=== PATIENT | male | born 1960 | race Two or more races ===

== ENCOUNTER → 2022-08-02 11:13 | Outpatient (BNVA) | payer OTHER, SELFPAY | PROVIDERS: PCP Internal Medicine; Visit Provider Anesthesiology | DX: M79.18 Myalgia, other site (principal) | CPT/HCPCS: 99202 ==

== ENCOUNTER 2023-10-08 12:05 | Outpatient (REF) | payer MEDICARE, MEDICAID, SELFPAY ==
[2023-10-08 13:22] LABS: Alanine Aminotransferase 14 U/L (0-40); Albumin Level 4.1 g/dL (3.5-5.0); Alkaline Phosphatase 96 U/L (39-117); Aspartate Amino Transferase 21 U/L (5-37); Bilirubin Direct < 0.2 mg/dL (0.0-0.5); Bilirubin Total 0.2 mg/dL (0.0-1.0); Total Protein 7.7 g/dL (6.5-8.0)
[2023-10-08 13:53] LABS: Vitamin B12 511 pg/mL (200-900)
== END 2023-10-08 12:06 | disposition home or self-care (01) ==
LOC: HO.LAB 12:05
PROVIDERS: Visit Provider Psychiatry & Neurology Neurology
DX: G30.9 Alzheimer's disease, unspecified (principal); F10.10 Alcohol abuse, uncomplicated
CPT/HCPCS: 36415; 80076; 82607; 82746

== ENCOUNTER 2025-07-06 08:46 | Outpatient (AMB) | payer MEDICARE, MEDICAID, SELFPAY ==
--- NOTE | 2025-07-06 08:47 | MHC.OFFVIS ---
Intake Visit Reasons: 6 months Accompanied by: Nephew or Niece Allergies acetaminophen (From Percocet) Allergy (Verified 07/06/25 08:48) Unknown oxycodone (From Percocet) Allergy (Verified 07/06/25 08:48) Unknown Medication List - Last Reconciled 07/03/25 by Naye Sanchez CNP acetaminophen ER mg PO albuterol sulfate 90 mcg/actuation (ProAir HFA) inhalation amlodipine 10 mg PO DAILY aspirin 81 mg PO DAILY atorvastatin 80 mg PO DAILY fenofibrate 54 mg PO DAILY fluoxetine mg PO QAM folic acid 1 mg PO DAILY hydrochlorothiazide 12.5 mg PO DAILY lisinopril 20 mg PO DAILY quetiapine 25 mg PO BEDTIME thiamine HCl (vitamin B1) 100 mg PO DAILY trazodone 25 mg PO BEDTIME HPI Comments Details: 64-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 He was living alone in apartment with his one dog. He was going for some walks with his dogs. His niece was helping to manage his medications. She was doing everything for him, including grocery shopping and paying his rent. He misplaces things and was forgetful. He was drinking 0-3 beers/week. Mood was okay. Sleep was okay. [facility] Medical History (Updated 07/06/25 @ 08:52 by Naye Sanchez CNP) Alcoholic dementia Alzheimer disease Abusive behavior Alcohol abuse Multifactorial dementia Internal hemorrhoids BPH (benign prostatic hyperplasia) Hypertension Hyperlipidemia Surgical History (Updated 08/02/22 @ 11:28 by ESCOBAR Sommer) History of kidney surgery History of knee surgery Review of Systems Const Denies chills, Denies daytime sleepiness, Denies difficulty sleeping, Denies fatigue, Denies fever(s), Denies frequent falls, Denies headache(s), Denies increased appetite, Denies poor appetite, Denies snoring, Denies weakness, Denies weight gain and Denies weight loss Eyes Denies loss of vision ENT Denies vertigo, Denies dizziness and Denies headache(s) Card Denies chest pain at rest, Denies chest pain with activity, Denies syncope, Denies leg edema and Denies palpitations Resp Denies snoring GI Denies constipation, Denies heartburn, Denies diarrhea and Denies nausea Denies urinary frequency, Denies urinary incontinence and Denies urinary urgency Musc Denies abnormal gait, Denies numbness and Denies tingling Skin/Breast Denies dry skin and Denies rash Neuro Denies abnormal gait, Denies vertigo, Denies dizziness, Denies syncope, Denies frequent falls, Denies headache(s), Denies lack of coordination, Denies loss of vision, Reports memory loss, Denies numbness, Denies restless legs, Denies seizure-like activity, Denies tingling, Denies paresthesias, Denies tremor(s) and Denies weakness Psych Denies anxiety, Denies depression, Denies auditory hallucinations, Reports memory loss, Denies visual hallucinations and Denies suicidal ideation Endo Denies fatigue and Denies palpitations Physical Exam Const Other: General Appearance:? normal, in no acute distress. Skin:? no rashes, no significant birthmarks. Heart:? S1, S2 normal, no murmurs. Lungs:? clear anteriorly and posteriorly. Extremities:? no edema. Psych:? alert, cooperative with exam. Neuro Other: Mental Status:?Alert and awake with normal sp speech and anxious affect. He is unable to tell me what city he lives in or his age. He is able to tell me his birthday Cranial Nerves:?Pupils are equal, round and reactive to light. External occular muscles are intact. Visual garcia are full. Face is symmetrical. Facial sensations are normal. Tongue is midline. Palate elevates symmetrically. Shoulder shrugging is normal. Hearing to bedside conversation is normal. Motor Examination:?DTRs trace to absent. Sensory Exam:?....? Coordination:?No ataxia,?no titubation.? Gait Exam: Within normal limits. Cerebellar Signs:?Nxxboc-hc-lwyz is okay. Extrapyramidal System:?No tremor, rigidity with normal facial expressions.? Pronator Drift:?Not present.? Involuntary Movements:?No tremors seen.? Speech:?Normal.? Results Reviewed Results Reviewed: MRI Brain w/o contrast at [facility] 09/2023: Mild MVD and atrophy (reported) Assessment & Plan Assessment & Plan (1) Alzheimer disease: Code(s): G30.9 - Alzheimer's disease, unspecified; F02.80 - Dementia in other diseases classified elsewhere, unspecified severity, without behavioral disturbance, psychotic disturbance, mood disturbance, and anxiety Category: Medical Plan: Continue quetiapine 25mg 1 tablet at bedtime Continue thiamine 100mg 1 tablet daily Continue folic acid 1mg 1 tablet daily (2) Multifactorial dementia: Code(s): F03.90 - Unspecified dementia, unspecified severity, without behavioral disturbance, psychotic disturbance, mood disturbance, and anxiety Category: Medical (3) Alcohol use disorder: Code(s): F10.90 - Alcohol use, unspecified, uncomplicated Category: Medical (4) Behavior disturbance: Code(s): F91.9 - Conduct disorder, unspecified Category: Medical Plan . Medications: New quetiapine 25 mg PO BEDTIME 90 tabs 1RF 90 days folic acid 1 mg PO DAILY 90 tabs 1RF 90 days thiamine HCl (vitamin B1) 100 mg PO DAILY 90 tabs 1RF 90 days Coding Level of Care Code Est Pt Level 4 (28712) Diagnoses Alzheimer disease G30.9; F02.80 Multifactorial dementia F03.90 Alcohol use disorder F10.90 Behavior disturbance F91.9
--- OUTSIDE RECORDS SUMMARY | 2025-07-06 09:09 | XMS_ITS ---
Author Name [facility] Organization Unknown Care Team Organization Name Specialty Phone Email Start Date End Da te [facility] Primary [facility] 09/26/2022 07/07/20 24
--- OUTSIDE RECORDS SUMMARY | 2025-07-06 09:09 | XMS_ITS | Clinical Summary ---
Author Organization [facility] Address [address] [place] [address] Phone Care Team Providers Care Strategic Accounts Manager Name Role Phone Lisbet Yu Primary Care Provider + Allergies Active Allergy Reactions Criticality Noted Date Comments Oxycodone-Acetaminophen 09/30/2013 Medications acetaminophen (TYLENOL 8 HOUR) 650 mg 8 hr tablet TAKE 1 TABLET BY MOUTH TWICE A DAY FOR 30 DAYS 07/14/20 22 Active aspirin 81 mg EC tablet TAKE 1 TABLET BY MOUTH EVERY DAY 07/25/20 23 Active atorvastatin (LIPITOR) 80 mg tablet TAKE 1 TABLET BY MOUTH EVERY DAY 06/19/20 24 Active QUEtiapine (SEROquel) 25 mg tablet 08/08/20 24 Active amLODIPine (NORVASC) 10 mg tabletIndication s:Primary hypertension Take 1 tablet (10 mg total) by mouth 1 (one) time each day. 90 tablet 1 12/29/19 25 Active magnesium oxide 250 mg magnesium tabletIndication s:Hypomagnesemia TAKE 1 TABLET BY MOUTH AT BEDTIME. 90 tablet 1 01/27/20 25 Active lisinopriL (PRINIVIL,ZESTRI L) 20 mg tabletIndication s:Primary hypertension TAKE 1 TABLET (20 MG TOTAL) BY MOUTH ONE TIME EACH DAY 90 tablet 1 06/15/20 25 Active hydroCHLOROthiaz sary (MICROZIDE) 12.5 mg capsuleIndicatio ns:Primary hypertension TAKE 1 CAPSULE BY MOUTH 1 TIME EACH DAY. 90 capsule 1 06/29/20 25 Active lisinopriL (PRINIVIL,ZESTRI L) 20 mg tabletIndication s:Primary hypertension Take 1 tablet (20 mg total) by mouth 1 (one) time each day. 90 tablet 1 12/29/19 25 025 Discontinued hydroCHLOROthiaz sary (MICROZIDE) 12.5 mg capsuleIndicatio ns:Primary hypertension Take 1 capsule (12.5 mg total) by mouth 1 (one) time each day. 90 capsule 1 12/29/19 25 025 Discontinued Active Problems Problem Noted Date Diagnosed Date Hyperlipidemia 06/05/2018 Hypertension 01/18/2018 BPH (benign prostatic hyperplasia) 05/25/2017 Internal hemorrhoids 03/23/2015 Prediabetes Encounters Date Type Department Care Team Description 05/11/2025 1:00 PM EDT - 05/11/2025 11:59 PM EDT Hospital Encounter [facility] CT Scan [address] [place] [id number] Discharge Disposition: Home or Self Care 05/11/2025 9:30 AM EDT Office Visit Lung Screening Program - [place] [address] [facility] [address] [place] [address] [place] NP Encounter for screening for malignant neoplasm of lung in current smoker with 30 pack year history or greater (Primary Dx); Tobacco abuse disorder 04/29/2025 Telephone Internal Medicine - [place] [address] [facility] [address] [place] [address] Lisbet Yu PA Melonie: Letter from Last 3 Months Immunizations Name Administration Dates Next Due Influenza Quadravalent, MDCK , 0.5ml, preservative free (Flucelvax) 6mo and older 10/23/2018 Influenza trivalent, 0.5mL, preservative free (Fluarix; FluLaval; Fluzone) ages 6mo and older (Afluria) 3 years and older 09/30/2019 Surgical History Surgery Date Site/Laterality Comments KNEE SURGERY PROCEDURE: HISTORICAL KNEE SURGERY OTHER SURGICAL HISTORY PROCEDURE: HISTORY OTHER; COMMENT: kidney surgery Medical History Medical History Date Comments BPH (benign prostatic hyperplasia) 05/25/2017 DX:BPH (benign prostatic hyperplasia) Hyperlipidemia 06/05/2018 DX:Hyperlipidemi a Hypertension 01/18/2018 DX:Hypertension Internal hemorrhoids 03/23/2015 DX:Internal hemorrhoids Prediabetes Social History Tobacco Use Types Packs/Day Years Used Date Smoking Tobacco: Every Day Cigarettes 0.5 49.6 Started: 1975 Smokeless Tobacco: Never Alcohol Use Standard Drinks/Week Comments Yes 0 (1 standard drink = 0.6 oz pur e alcohol) Sex and Gender Information Value Date Recorded Sex Assigned at Not on file Legal Sex Male 1:57 PM EST Gender Identity Not on file Sexual Orientation Not on file Obstetrics History Last Filed Vital Signs Vital Sign Reading Time Taken Comments Blood Pressure 140/86 03/30/2025 9:43 AM EDT Pulse 67 03/30/2025 9:22 AM EDT Temperature 37 C (98.6 F) 05/11/2025 9:25 AM EDT Respiratory Rate - - Oxygen Saturation 98% 03/30/2025 9:22 AM EDT Inhaled Oxygen Concentration - - Weight 57.6 kg (127 lb) 03/30/2025 9:22 AM EDT Height 160 cm (5' 3 ) 03/30/2025 9:22 AM EDT Body Mass Index 22.5 03/30/2025 9:22 AM EDT Plan of Treatment Upcoming Encounters Date Type Department Care Team (Late st Contact Info) Description 09/28/2025 10:00 AM EST Office Visit Internal Medicine - [place] [address] [facility] [address] [place] [phone] Lisbet Yu, PA [address] [place] [address] Health Maintenance Due Date Last Done Comments Zoster Vaccines (1 of 2) 2008 Pneumococcal Vaccine: 50+ Years (2 of 2 - PCV) 09/20/2013 09/20/2012 Abdominal Aortic Aneurysm (AAA) Screen 10/28/2022 Colorectal Cancer Screening: Colonoscopy 10/28/2022 Hepatitis C Screening 10/28/2022 Medicare Annual Wellness Visit 10/28/2022 Social Influencers of Health Screening 10/28/2022 DTaP,Tdap,and Td Vaccines (2 - Td or Tdap) 04/04/2023 04/04/2013 Falls Risk Assessment 2023 COVID-19 Vaccine ( season) 2024 04/04/2021, 03/14/2021 Depression Screening 11/19/2024 Influenza Vaccine (#1) 2025 , 09/30/2019, 07/11/2019, Additional history exists Hypertension/CHF/CAD Annual BMP Blood Test 01/23/2026 01/23/2025, 08/31/2023 Lung Cancer Screening (Low Dose CT) 05/11/2026 05/11/2025, 01/23/2022, 01/22/2021 Cholesterol Screening (Lipid Panel) 01/23/2030 01/23/2025, 08/31/2023 RSV Immunization Adult Patients (1 - 1-dose 75+ series) 2033 Hepatitis A Vaccines Aged Out 05/31/2012 No long er eligible based on patient's age to complete this topic Hepatitis B Vaccines Completed 04/04/2013, 09/20/2012, 05/31/2012 HIB Vaccines Aged Out No longer eligi ble based on patient's age to complete this topic HPV Vaccines Aged Out No longer eligi ble based on patient's age to complete this topic IPV Vaccines Aged Out No longer eligi ble based on patient's age to complete this topic MMR Vaccines Aged Out No longer eligi ble based on patient's age to complete this topic Meningococcal ACWY Vaccine Aged Out N o longer eligible based on patient's age to complete this topic Meningococcal B Vaccine Aged Out No l onger eligible based on patient's age to complete this topic RSV Immunization Patients Under 20 months Aged Out No longer eligible based on patient's age to complete this topic Varicella Vaccines Aged Out No longer eligible based on patient's age to complete this topic Procedures Procedure Name Priority Date/Time Associated Diagnosis Comments CT LUNG SCREENING Routine 05/11/2025 1:5 5 PM EDT Encounter for screening for malignant neoplasm of respiratory organs Nicotine dependence, cigarettes, uncomplicated COMPREHENSIVE METABOLIC PANEL Routine 01/23/2025 8:51 AM EST Primary hypertension Pure hypercholesterolemia LIPID PANEL WITH REFLEX TO DIRECT LDL Routine 01/23/2025 8:51 AM EST Pure hypercholesterolemia from Last 3 Months or Most Recently Relevant to Health Maintenance Results * CT Lung Screening (05/11/2025 1:55 PM EDT) Anatomical Region Laterality Modality Chest Computed Tomogra phy 05/12/2025 2:16 PM EDT Impressions 05/12/2025 3:34 PM EDT Lung RADS 2. Guidelines recommend repeat low-dose screening CT in 12 months. -------- FINAL REPORT -------- Dictated By: Jono Amaral Dictated Date: 05/12/2025 14:16 ET Assigned Physician: Jono Amaral Reviewed and Electronically Signed By: Jono Amaral Signed Date: 05/12/2025 15:34 ET Workstation ID: [id number] Transcribed By: Self Edit Transcribed Date: 05/12/2025 14:16 ET Narrative 05/12/2025 3:34 PM EDT PROCEDURE: Low-dose CT of the chest without intravenous contrast. TECHNIQUE: Low-dose CT of the chest without intravenous contrast administration. Coronal and sagittal reformats and MIP reconstructions were created. Dose length product: 160 mGy-cm. HISTORY: Lung cancer screening, >=20 pk yr current smoker (Age 50-80y) COMPARISON: 01/22/2022. FINDINGS: Lungs/pleura: The central airways are clear and normal in caliber. Mild focal bronchial wall thickening and small focal centrilobular groundglass nodules, suggestive of RB-ILD. Stable 3 mm nodule in the lateral superior segment of the left lower lobe, series 3 image 110. Right larger than left Bochdalek hernias with mild associated compressive atelectasis. No pleural effusion or pneumothorax. Mediastinum/romina: No mediastinal mass or lymphadenopathy. Calcified right hilar nodes. No appreciable hilar lymphadenopathy on limited noncontrast evaluation. Vasculature: Normal caliber pulmonary arteries. Moderate atherosclerotic calcifications of the aorta and great vessels. Cardiac: Normal heart size. Mild coronary artery calcification. Chest wall: No axillary or supraclavicular lymphadenopathy. Limited abdomen: A low-attenuation lesion in the lateral left kidney, probably a cyst. Punctate calcified granulomas in the liver and spleen. Bones: Degenerative changes of the spine. Right glenohumeral arthroplasty. Procedure Note Jono Amaral MD - 05/12/2025 PROCEDURE: Low-dose CT of the chest without intravenous contrast. TECHNIQUE: Low-dose CT of the chest without intravenous contrastadministration. Coronal and sagittal reformats and MIP reconstructionswere created. Dose length product: 160 mGy-cm. HISTORY: Lung cancer screening, >=20 pk yr current smoker (Age 50-80y) COMPARISON: 01/22/2022. FINDINGS: Lungs/pleura: The central airways are clear and normal in caliber. Mildfocal bronchial wall thickening and small focal centrilobular groundglassnodules, suggestive of RB-ILD. Stable 3 mm nodule in the lateral superiorsegment of the left lower lobe, series 3 image 110. Right larger thanleft Bochdalek hernias with mild associated compressive atelectasis. Nopleural effusion or pneumothorax. Mediastinum/romina: No mediastinal mass or lymphadenopathy. Calcified righthilar nodes. No appreciable hilar lymphadenopathy on limited noncontrastevaluation. Vasculature: Normal caliber pulmonary arteries. Moderate atheroscleroticcalcifications of the aorta and great vessels. Cardiac: Normal heart size. Mild coronary artery calcification. Chest wall: No axillary or supraclavicular lymphadenopathy. Limited abdomen: A low-attenuation lesion in the lateral left kidney,probably a cyst. Punctate calcified granulomas in the liver and spleen. Bones: Degenerative changes of the spine. Right glenohumeralarthroplasty. IMPRESSION: Lung RADS 2. Guidelines recommend repeat low-dose screening CT in 12months. -------- FINAL REPORT -------- Dictated By: Jono Amaral Dictated Date: 05/12/2025 14:16 ET Assigned Physician: Jono Amaral Reviewed and Electronically Signed By: Jono Amaral Signed Date: 05/12/2025 15:34 ET Workstation ID: [id number] Transcribed By: Self Edit Transcribed Date: 05/12/2025 14:16 ET us Vani Grajeda MD [facility] CT PROCEDURES Final Result * (ABNORMAL) Lipid panel with reflex to direct LDL (01/23/2025 8:51 AM EST) Cholesterol 178 0 - 200 mg/dL LAB CHEMISTRY METHOD 01/23/2025 11:15 AM [facility] Triglycerides 223(H) 0 - 150 mg/dL LAB CHEMISTRY METHOD 01/23/2025 11:15 AM [facility] HDL 48 >=40 mg/dL LAB CHEMISTRY METHOD 01/23/2025 11:15 AM [facility] LDL Calculated 85 0 - 100 mg/dL LAB CHEMISTRY METHOD 01/23/2025 11:15 AM [facility] VLDL Cholesterol Meek 44.6 mg/dL LAB CHEMISTRY METHOD 01/23/2025 11:15 AM [facility] Non HDL Chol. (LDL+VLDL) 130 <145 mg/dL LAB CHEMISTRY METHOD 01/23/2025 11:15 AM [facility] Chol/HDL Ratio 3.7 0.0 - 4.4 LAB CHEMISTRY METHOD 01/23/2025 11:15 AM [facility] Blood Venous blood specimen / Unknown Venipuncture / Unknown 01/23/2025 8:51 AM EST 01/23/2025 8:51 AM EST us Lisbet BOO LAB BLOOD ORDERABLES Fin al Result [facility] [address] [place] [address], * Comprehensive metabolic panel (01/23/2025 8:51 AM EST) Sodium 138 133 - 145 mmol/L LAB CHEMISTRY METHOD 01/23/2025 11:15 AM [facility] Potassium 4.1 3.5 - 5.5 mmol/L LAB CHEMISTRY METHOD 01/23/2025 11:15 AM [facility] Chloride 104 96 - 110 mmol/L LAB CHEMISTRY METHOD 01/23/2025 11:15 AM [facility] CO2 29 21 - 32 mmol/L LAB CHEMISTRY METHOD 01/23/2025 11:15 AM [facility] Anion Gap 5 3 - 11 LAB CHEMISTRY METHOD 01/23/2025 11:15 AM [facility] Glucose 89 70 - 100 mg/dL LAB CHEMISTRY METHOD 01/23/2025 11:15 AM [facility] BUN 11 5 - 25 mg/dL LAB CHEMISTRY METHOD 01/23/2025 11:15 AM [facility] Creatinine 0.87 0.70 - 1.30 mg/dL LAB CHEMISTRY METHOD 01/23/2025 11:15 AM [facility] eGFR 95 >=60 mL/min/1. 73m2 LAB CHEMISTRY METHOD 01/23/2025 11:15 AM [facility] Comment:Calculation based on the Chronic Kidney Disease Epidemiology Collaboration (CKD-EPI) equation refit without adjustment for race. BUN/Creatinine Ratio 12.6 LAB CHEMISTRY METHOD 01/23/2025 11:15 AM [facility] Calcium 9.6 8.5 - 10.5 mg/dL LAB CHEMISTRY METHOD 01/23/2025 11:15 AM [facility] AST (SGOT) 16 10 - 42 unit/L LAB CHEMISTRY METHOD 01/23/2025 11:15 AM [facility] ALT (SGPT) 22 10 - 60 unit/L LAB CHEMISTRY METHOD 01/23/2025 11:15 AM [facility] Alkaline Phosphatase 99 42 - 121 unit/L LAB CHEMISTRY METHOD 01/23/2025 11:15 AM [facility] Total Protein 7.2 6.0 - 8.0 g/dL LAB CHEMISTRY METHOD 01/23/2025 11:15 AM [facility] Albumin 3.6 3.2 - 5.0 g/dL LAB CHEMISTRY METHOD 01/23/2025 11:15 AM [facility] Total Bilirubin 0.2 0.0 - 1.4 mg/dL LAB CHEMISTRY METHOD 01/23/2025 11:15 AM EST [facility] Blood Venous blood specimen / Unknown Venipuncture / Unknown 01/23/2025 8:51 AM EST 01/23/2025 8:51 AM EST Lisbet BOO LAB BLOOD ORDERABLES Fin al Result [facility] [address] [place] [address], from Last 3 Months or Most Recently Relevant to Health Maintenance Insurance MEDICARE MEDICAID - [place] Care Teams Strategic Accounts Manager Relationship Specialty Start Date End Date Lisbet Yu PA [address] [place] [address] PCP - General 02/14/24
== END 2025-07-06 09:14 | disposition home or self-care (01) ==
LOC: HO.HSM 08:46
PROVIDERS: PCP Internal Medicine; Referring Provider Internal Medicine; Visit Provider Registered Nurse
DX: G30.9 Alzheimer's disease, unspecified (principal); F02.80 Dementia in other diseases classified elsewhere, unspecified severity, without behavioral disturbance, psychotic disturbance, mood disturbance, and anxiety; F03.90 Unspecified dementia, unspecified severity, without behavioral disturbance, psychotic disturbance, mood disturbance, and anxiety; F10.90 Alcohol use, unspecified, uncomplicated; F91.9 Conduct disorder, unspecified
CPT/HCPCS: 99214

== ENCOUNTER → 2025-07-06 08:46 | Outpatient (BNVA) | payer MEDICARE, MEDICAID, SELFPAY | PROVIDERS: PCP Internal Medicine; Referring Provider Internal Medicine; Visit Provider Registered Nurse | DX: G30.9 Alzheimer's disease, unspecified (principal); F02.80 Dementia in other diseases classified elsewhere, unspecified severity, without behavioral disturbance, psychotic disturbance, mood disturbance, and anxiety; F10.90 Alcohol use, unspecified, uncomplicated; F91.9 Conduct disorder, unspecified; Z79.899 Other long term (current) drug therapy | CPT/HCPCS: 99212 ==